=== PATIENT | male | born 1970 | race Caucasian/White ===

== ENCOUNTER 2017-12-07 21:06 | Emergency (ER) ==
[2017-12-07 21:13] VITALS: BP 129/88; TEMP 98.6; BMI 29.0
[2017-12-07] MEDS ORDERED: DECADRON 4 MG/ML SDV IM STA (21:48)
[2017-12-07] MEDS ORDERED: XOPENEX 1.25 MG NEB STA (21:53)
[2017-12-07] MEDS ORDERED: DUONEB NEB STA (21:53)
--- NOTE | 2017-12-07 22:20 | CT ---
EXAM: CT scan paranasal sinuses HISTORY: Cough COMPARISON: None. FINDINGS: Contiguous axial images obtained through the sinuses without contrast utilizing 3-mm colli mation. Sagittal and coronal reconstructions were imaged reviewed. The orbital structures are intac t. Minimal mucoperiosteal thickening is seen in the bilateral maxillary sinuses. The ostiomeatal co mplexes are patent. Remaining sinuses are clear. IMPRESSION: Mild mucoperiosteal thickening bilateral maxillary sinuses. The remaining sinuses are clear.
--- NOTE | 2017-12-07 22:23 | CT ---
EXAM: CT scan thorax without contrast HISTORY: Cough COMPARISON: None. FINDINGS: Contiguous axial images were obtained through the thorax without contrast utilizing 5 mm c ollimation.. Sagittal and coronal reconstructions were imaged and reviewed.. The thoracic inlet is unremarkable. There are subcentimeter pretracheal lymph nodes. The ascending aorta is mildly ectati c measuring 3.7 cm. Heart is normal in size with minimal coronary artery occasion. There is a hiata l hernia. The lungs are clear bilaterally. Visualized upper abdominal structures unremarkable. Wind ows reveals no evidence of lytic or blastic lesions. IMPRESSION: Ectatic ascending aorta. Mild coronary artery calcification. No evidence of active pulmonary disease
--- NOTE | 2017-12-07 22:29 | ED.PDOC ---
General ED Provider: Dr. BRONSON COLEMAN-ER Chief Complaint: Cough Stated Complaint: kiel been coughing for 2 weeks--my sinuses are bothering me Time Seen by Physician: 21:10 Mode of Arrival: Walk-In Information Source: Patient, Family Exam Limitations: No limitations Nursing and Triage Documentation Reviewed and Agree: Yes Reviewed sepsis parameters & appropriate labs ordered?: Yes System Inflammatory Response Syndrome: Not Applicable Sepsis Protocol: For patient's 13 years and over: Temp is 96.8 and below OR 101 and greater Pulse >90 BPM Resp >20/minute Acutely Altered Mental Status Are patient's symptoms suggestive of a new infection, such as: -Pneumonia -Skin, Soft Tissue -Endocarditis -UTI -Bone, Joint Infection -Implantable Device -Acute Abdominal Infection -Wound Infection -Meningitis -Blood Stream Catheter Infection -Unknown Respiratory Complaint Exam - Respiratory Complaint/Exam Onset/Duration: 2 weeks Symptoms Are: Still present Timing: Constant Initial Severity: Mild Current Severity: Mild Location: Nose, Chest Character: Reports: Productive cough Aggravating: Reports: URI Alleviating: Reports: None, Spontaneous resolution Associated Signs and Symptoms: Reports: URI, Nasal congestion. Denies: Rapid breathing, Dyspnea, Fever, Chills, Chest pain, Pleuritic chest pain, Wheezing, Hemoptysis, Dizziness, Calf pain, Calf swelling, Edema, Hoarseness, Sinus discomfort, Vomiting, Sore throat, Decreased oral intake, Increased thirst, Increased appetite, Increased urination Related History: Reports: Similar episode History of Healthcare-Acquired Pneumonia: No Home Oxygen Use: No Recent Stress Test: No Recent Echo/LV Function: No Current Antibiotic Use: No Current Asthma Medication Use: No Respiratory Distress: None Inadequate Respiratory Effort: No Dysphagia Present: No Stridor Present: No JVD Present: No Accessory Muscle Use: No Retractions: Not Present Diminished Breath Sounds: No Sinus Tenderness: None Grunting Respirations: No Kussmaul Respirations: No Differential Diagnoses: Bronchitis, Sinusitis Non-Traumatic Chest Pain Syncope: EKG Performed Review of Systems - Review Of Systems Constitutional: Reports: No symptoms Eyes: Reports: No symptoms Ears, Nose, Mouth, Throat: Reports: Nose discharge Respiratory: Reports: Cough Cardiac: Reports: No symptoms GI: Reports: No symptoms : Reports: No symptoms Musculoskeletal: Reports: No symptoms Skin: Reports: No symptoms Neurological: Reports: No symptoms Endocrine: Reports: No symptoms Hematologic/Lymphatic: Reports: No symptoms All Other Systems: Reviewed and Negative Past Medical History - Past Medical History Previously Healthy: No Endocrine: Reports: None Cardiovascular: Reports: None Respiratory: Reports: None Hematological: Reports: None Gastrointestinal: Reports: None Genitourinary: Reports: None Neuro/Psych: Reports: None Musculoskeletal: Reports: None Cancer: Reports: None - Surgical History General Surgical History: Reports: None - Family History Family History: Reports: None - Social History Smoking Status: Former smoker Hx Substance Use: No Alcohol Screening: Occasionally - Immunizations Tetanus Shot up to Date: No (unknown) Physical Exam - Physical Exam Appearance: Well-appearing, No pain distress, Well-nourished Eyes: YONG, EOMI, Conjunctiva clear ENT: Ears normal, Nose normal, Oropharynx normal Neck: Supple Respiratory: Airway patent, Breath sounds clear, Breath sounds equal, Respirations nonlabored Cardiovascular: RRR, Pulses normal, No rub, No murmur GI/: Soft, Nontender, No masses, Bowel sounds normal, No Organomegaly Musculoskeletal: Normal strength Skin: Warm Neurological: Sensation intact Psychiatric: Affect appropriate, Mood appropriate Interpretation - Radiology Interpretation Radiology Interpretation By: Radiologist Radiology Results: Positive Exam Interpreted: CT Scan Critical Care Note - Critical Care Note Total Time (mins): 0 Course - Course Hematology/Chemistry: 12/07/17 21:55 12/07/17 21:55 Orders, Labs, Meds: Lab Review 12/07/17 12/07/17 12/07/17 21:55 21:55 21:55 WBC 10.77 H RBC 5.38 Hgb 15.9 Hct 43.7 MCV 81.2 MCH 29.6 MCHC 36.4 H RDW Coeff of Sahra 12.6 Plt Count 264 Immature Gran % (Auto) 0.5 Neut % (Auto) 68.1 Lymph % (Auto) 23.8 [place] % (Auto) 6.7 Eos % (Auto) 0.5 Baso % (Auto) 0.4 Immature Gran # (Auto) 0.1 Neut # 7.4 H Lymph # 2.6 [place] # 0.7 Eos # 0.1 Baso # 0.0 Sodium 144 Potassium 3.9 Chloride 109 H Carbon Dioxide 25 Anion Gap 13.9 BUN 17 Creatinine 1.03 Estimated GFR (MDRD) 77.00 BUN/Creatinine Ratio 16.50 Glucose 107 H Calcium 9.0 Total Bilirubin 0.4 AST 17 ALT 25 Alkaline Phosphatase 89 B-Natriuretic Peptide < 10 Total Protein 7.5 Albumin 3.6 Globulin 3.9 Albumin/Globulin Ratio 0.92 Orders Category Date Time Status EKG-(ED ONLY) Stat CARDIO 12/07/17 21:22 Ordered NEBULIZER TREATMENT Stat CARDIO 12/07/17 21:53 Ordered BNP [B-TYPE NATRIURETIC PEPTIDE] Stat LAB 12/07/17 21:55 Completed CBC W/ AUTO DIFF Stat LAB 12/07/17 21:55 Completed COMPREHENSIVE METABOLIC PANEL Stat LAB 12/07/17 21:55 Completed Dexamethasone 4 mg/ml Inj [Decadron 4 mg/ml Sdv] MEDS 12/07/17 21:48 Discontinued 8 mg IM ONCE STA Ipratropium/Albuterol Neb [Duoneb] MEDS 12/07/17 21:53 Discontinued 1 vial NEB ONCE STA Levalbuterol HCl [Xopenex 1.25 mg] MEDS 12/07/17 21:53 Discontinued [address] vial NEB ONCE STA CT CHEST W/O CONTRAST Stat RADS 12/07/17 21:[address] SINUSES W/O CONTRAST Stat RADS 12/07/17 21:22 Completed Medications Discontinued Medications Generic Name Dose Route Start Last Admin Trade Name Freq PRN Reason Stop Dose Admin Albuterol/Ipratropium 1 vial 12/07/17 21:53 Duoneb NEB 12/07/17 21:54 ONCE STA Dexamethasone Sodium Phosphate 8 mg 12/07/17 21:48 12/07/17 21:58 Decadron 4 Mg/Ml Sdv IM 12/07/17 21:49 8 mg ONCE STA Administration Levalbuterol HCl 1 vial 12/07/17 21:53 Xopenex 1.25 Mg NEB 12/07/17 21:54 ONCE STA Vital Signs: Temp Pulse Resp BP Pulse Ox 12/07/17 21:08 98.6 F 91 H 24 129/88 95 Departure - Departure Time of Disposition: 22:43 Disposition: HOME SELF-CARE Discharge Problem: Cough GERD (gastroesophageal reflux disease) Qualifiers: Esophagitis presence: without esophagitis Qualified Code(s): K21.9 - Gastro- esophageal reflux disease without esophagitis Sinusitis Qualifiers: Sinusitis location: other Chronicity: acute Recurrence: non-recurrent Qualified Code(s): J01.80 - Other acute sinusitis Instructions: Chronic Cough (ED) Condition: Good Pt referred to PMD for follow-up: Yes IPMP verified?: No Additional Instructions: biaxin 500mg bid x 10 days--prednisone 20mg x 3 days then 10mg x 3 days--proair inhaler 2puffs qid--nexium 40mg q daily #30--f/u with pcp next week Allergies/Adverse Reactions: Allergies No Known Allergies Allergy (Verified 12/07/17 21:13) Home Medications: Ambulatory Orders 1 [No Reported Medications] 11/12/16 Disposition Discussed With: Patient, Family
== END 2017-12-07 23:08 | disposition home or self-care (01) ==
LOC: ED 21:06
DX: J01.80 Other acute sinusitis (principal); R05 Cough; K21.9 Gastro-esophageal reflux disease without esophagitis
CPT/HCPCS: 36415; 80053; 83880; 85025; 93005; 93010; 94640; 96372; 99283